=== PATIENT | female | born 1990 | race Caucasian/White ===

== ENCOUNTER → 2020-03-18 09:54 | Outpatient (CLI) | payer OTHER, MEDICAID, SELFPAY | PROVIDERS: Family Provider Pediatrics; PCP Obstetrics & Gynecology; Referring Provider Obstetrics & Gynecology; Visit Provider Obstetrics & Gynecology | DX: O21.1 Hyperemesis gravidarum with metabolic disturbance (principal); Z53.20 Procedure and treatment not carried out because of patient's decision for unspecified reasons; Z87.898 Personal history of other specified conditions ==

== ENCOUNTER → 2020-06-03 16:58 | Outpatient (CLI) | payer OTHER, MEDICAID, SELFPAY ==
[2020-06-03 17:29] LABS: Add Manual Diff / Slide Review NO; Basophils Absolute Auto 100 /uL (0-100); Basophils Percent Auto 0.9 % (0-2); Eosinophils Absolute Auto 100 /uL (0-450); Eosinophils Percent Auto 1.4 % (2-4); Hematocrit 37.2 % (36-46); Hemoglobin 12.9 g/dL (12.0-16.0); Lymphocytes Absolute Auto 1800 /uL (1100-4500); Lymphocytes Percent Auto 19.1 % (25-40); Mean Corpuscular HGB Conc 34.8 % (30-36); Mean Corpuscular Hemoglobin 32.1 PG (26-34); Mean Corpuscular Volume 92.3 fL (80-100); Monocytes Absolute Auto 400 /uL (0-900); Monocytes Percent Auto 4.3 % (3-14); Neutrophils Absolute Auto 7100 /uL (1500-7000); Neutrophils Percent Auto 74.3 % (50-75); Platelet Count 186 X10^3/uL (150-400); Red Blood Cell Count 4.03 X10^6/uL (4.0-5.2); Red Cell Distribution Width 12.5 % (11.6-14.8); White Blood Cell Count 9.5 X10^3/uL (4.5-11.0)
[2020-06-03 20:00] LABS: Hepatitis B Surface Antigen NEGATIVE s/c (NEGATIVE); Rubella Antibody IgG 20.9 IU/mL (>15)
[2020-06-03 20:10] LABS: HIV 1 & 2 Ab/Ag 4th Gen Combo NEGATIVE (NEGATIVE); Hep C Virus Ab w/Reflex Quant NEGATIVE s/c (NEGATIVE)
[2020-06-04 07:35] LABS: RPR Screen Non Reactive (Non Reactive)
[2020-06-04 08:09] LABS: Varicella IgG Antibody 1736 index (Immune >165)
== END ==
PROVIDERS: Family Provider Pediatrics; Referring Provider Obstetrics & Gynecology; Visit Provider Obstetrics & Gynecology
DX: Z34.81 Encounter for supervision of other normal pregnancy, first trimester (principal)
CPT/HCPCS: 36415; 80055; 86787; 86803; 86850; 86900; 86901; 87389

== ENCOUNTER → 2020-06-04 09:22 | Outpatient (CLI) | payer OTHER, MEDICAID, SELFPAY ==
--- NOTE | 2020-06-04 09:23 | DI.US.S_ITS ---
PROCEDURE: US OB >= 14 WEEKS FETUS INDICATIONS: ANATOMY OUTSIDE/PRIOR DATING DATA: Last menstrual period (LMP): 12/27/2019. LMP-based estimated date of delivery (KALI): 10/02/2020 . First dating scan (date and location): 03/12/2020at Dr. Schneider. Estimated date of delivery (KALI) from first dating scan: 10/14/2020. TECHNIQUE: Real-time scanning was performed of the fetus, with image documentation and biometric measurements. Endovaginal scanning: Not performed COMPARISON: [facility], , OB <= 14 WEEKS FETUS, 04/09/2020, 16:19. [facility], , OB <= 14 WEEKS FETUS, 03/12/2020, 16:03. [facility], OB >= 14 WEEKS FETUS, 05/07/2020, 16:54. FINDINGS: General: A single living intrauterine gestation is present. Presentation: Vertex. Placenta: Placental position is anterior , without previa. Amniotic fluid index: 14.4 cm, normal range is 5-24 cm; largest pocket 4.7 cm. heart rate: 155 beats per minute. Maternal cervical canal: 4.6 cm long. Normal lower limit is 2.5 cm. biometrics: Biparietal diameter: 22 weeks 3 days Head circumference: 21 weeks 3 days Abdominal circumference: 22 weeks 4 days Femur length: 22 weeks 0 day Estimated gestational age from initial scan: 21 weeks 1 day. Composite gestational age from present scan: 22 weeks 1 day Estimated weight and percentile: 489; 94% Measurement variability for biometric dating: +/- 7 days from 14 weeks to 15 weeks 6 days gestation, +/- 10 days from 16 weeks to 21 weeks 6 days gestation, +/- 2 weeks from 22 weeks to 27 weeks 6 days gestation, +/- 3 weeks for 28 weeks gestation or later. weight reference: 4500 g or EFW >90/95% is considered macrosomia or large for gestational age. EFW <10% is small for gestational age. EFW 5% or less is considered intra-uterine growth restriction. Anatomic survey: Neuro: Ventricles are non-dilated at less than 10 mm. Cisterna magna is normal at 3-11 mm. Cerebellum is normal in size and morphology. Nuchal skin fold: Normal at less than 6 mm between 14-21 weeks gestational age. Face: Nose and lips are normal. Facial profile not well seen. Spine: No evidence for spina bifida. Heart: 4-chambered heart is present, with normal ventricular outflow tracts. Diaphragm: Diaphragm is intact. Stomach: Left-sided stomach is present. Kidneys: No hydronephrosis. Normal is less than 5 mm in 2nd trimester, less than 7 mm in 3rd trimester. Cord: 3-vessel cord has orthotopic insertion. Bladder: Normal in size. Extremities: All 4 extremities identified. IMPRESSION: 1. A single living intrauterine gestation with appropriate interval growth. weight at the 94th percentile. 2. facial profile not well seen. Follow-up imaging suggested. 3. Otherwise normal anatomic survey. Dictated by: Lauri Javed M.D. on 06/04/2020 at 11:47 Approved by: Lauri Javed M.D. on 06/04/2020 at 13:19
== END ==
PROVIDERS: Family Provider Pediatrics; Referring Provider Obstetrics & Gynecology; Visit Provider Obstetrics & Gynecology
DX: Z34.82 Encounter for supervision of other normal pregnancy, second trimester (principal); Z3A.22 22 weeks gestation of pregnancy
CPT/HCPCS: 76811

== ENCOUNTER → 2020-07-25 15:29 | Outpatient (CLI) | payer OTHER, MEDICAID, SELFPAY | PROVIDERS: Family Provider Pediatrics; Referring Provider Obstetrics & Gynecology; Visit Provider Obstetrics & Gynecology | DX: Z34.01 Encounter for supervision of normal first pregnancy, first trimester (principal); Z3A.28 28 weeks gestation of pregnancy | CPT/HCPCS: 36415 ==

== ENCOUNTER → 2020-08-07 11:46 | Outpatient (CLI) | payer OTHER, MEDICAID, SELFPAY ==
[2020-08-07 12:26] LABS: Appearance Urine UA CLEAR; Bilirubin Urine UA NEGATIVE (NEGATIVE); Color Urine UA YELLOW; Glucose Urine UA NEGATIVE (Negative); Ketones Urine UA NEGATIVE (NEGATIVE); Leukocyte Esterase Urine UA NEGATIVE (NEGATIVE); Nitrite Urine UA NEGATIVE (Negative); Occult Blood Urine UA NEGATIVE (Negative); Protein Urine UA NEGATIVE (Negative); Specific Gravity Urine UA <=1.005 (1.000-1.035); Urobilinogen Urine UA 0.2 E.U./dL (0.2)
[2020-08-07 12:27] LABS: pH Urine UA 6.5 (4.5-8.0)
[2020-08-07 14:05] LABS: Hematocrit 37.6 % (36-46); Hemoglobin 12.6 g/dL (12.0-16.0)
[2020-08-07 14:20] LABS: GTT (PREG) 1 Hour PP 50gm Dose 122 mg/dL (76-139)
== END ==
PROVIDERS: Family Provider Pediatrics; Referring Provider Obstetrics & Gynecology; Visit Provider Obstetrics & Gynecology
DX: Z34.82 Encounter for supervision of other normal pregnancy, second trimester (principal)
CPT/HCPCS: 36415; 81003; 82950; 85014; 85018; 87086

== ENCOUNTER → 2020-08-15 19:05 | Outpatient (ROUT) | payer OTHER, MEDICAID, SELFPAY ==
[2020-08-18 00:41] LABS: Chlamydia trachomatis NAA Negative (Negative); Neisseria gonorrhoeae NAA Negative (Negative)
== END ==
PROVIDERS: Family Provider Pediatrics; Visit Provider Obstetrics & Gynecology
DX: Z34.82 Encounter for supervision of other normal pregnancy, second trimester (principal)
CPT/HCPCS: 87491; 87591

== ENCOUNTER → 2020-09-12 15:45 | Outpatient (CLI) | payer OTHER, MEDICAID, SELFPAY ==
[2020-09-12 20:50] LABS: Urine N gonorrhoeae NOT DETECTED
[2020-09-12 21:08] LABS: Urine Chlamydia NOT DETECTED
[2020-09-13 12:58] LABS: Strep Grp B PCR NEG for Grp B Strep
== END ==
PROVIDERS: Family Provider Pediatrics; Visit Provider Obstetrics & Gynecology
DX: Z34.83 Encounter for supervision of other normal pregnancy, third trimester (principal); Z3A.35 35 weeks gestation of pregnancy
CPT/HCPCS: 87491; 87591; 87653

== ENCOUNTER 2020-10-08 10:40 | Outpatient (CLI) | payer OTHER, MEDICAID, SELFPAY | END 2020-10-08 11:34 | disposition home or self-care (01) | LOC: LABOR 11:47 → OB 10-10 10:36 | PROVIDERS: Family Provider Pediatrics; Referring Provider Obstetrics & Gynecology; Visit Provider Obstetrics & Gynecology | DX: Z34.03 Encounter for supervision of normal first pregnancy, third trimester (principal); Z3A.39 39 weeks gestation of pregnancy | CPT/HCPCS: 59025; G0378; G0379 ==

== ENCOUNTER → 2020-10-15 09:25 | Outpatient (CLI) | payer OTHER, MEDICAID, SELFPAY ==
[2020-10-15 09:56] LABS: COVID19 -Nasal RAPID Negative (Negative)
== END ==
PROVIDERS: Family Provider Pediatrics; Referring Provider Obstetrics & Gynecology; Visit Provider Obstetrics & Gynecology
DX: Z01.812 Encounter for preprocedural laboratory examination (principal); Z20.822 Contact with and (suspected) exposure to COVID-19
CPT/HCPCS: 87635

== ENCOUNTER 2020-10-15 09:31 | Outpatient (CLI) | payer OTHER, MEDICAID, SELFPAY ==
--- NOTE | 2020-10-15 09:58 | PM.OBTRLD ---
Visit Information Visit Information Date of evaluation: 10/15/20 Primary OB Provider: Lindsay Schneider Reason for Evaluation: Yes non-stress test non-stress test reason: other (postdates) [facility] Medical History (Updated 08/18/20 @ 13:14 by Lindsay Schneider MD) Constipation (~2014) Irregular menses MRSA (methicillin resistant Staphylococcus aureus) (~2010) Ovarian cyst PCOS (polycystic ovarian syndrome) (~2017) Wrist fracture Yeast infection of the vagina Surgical History (Updated 02/21/20 @ 09:22 by Ariane Morocho RN) [place] teeth extracted (~2010) Family History (Updated 04/08/20 @ 21:47 by Evelyne Barrera) Mother Diabetes mellitus Father Cancer Congestive heart failure Hypertension Grandmother Stroke Smoker Grandfather Cancer Grandmother Smoker Emphysema lung COPD (chronic obstructive pulmonary disease) Grandfather Cancer Sister Asthma Social History (Updated 02/21/20 @ 10:25 by Ariane Morocho RN) marital status: unmarried,living together number of children: 0 household members: significant other and family lives independently: No (Just moved in with her parents. Lots of supportive family.) caregiver/support person: No housing: house pets and animals: Yes (1 Cat, 1 Dog. ) education level: college occupational status: previously employed current occupational exposures/hazards: No greg/presybeterian: Hoahaoism special greg needs: No Smoking Status: Former smoker Tobacco: How many years used: 4 second hand exposure: No alcohol intake: former substance use type: former substance user Type(s) of exercise: walking and regular exercise Evaluation Evaluation Baseline heart rate: 120 Variability: Moderate (11-25) monitor accelerations: Present Monitor Decelerations: Absent Uterine Contraction Intensity: Mild Category of Tracing: Reactive Cervical dilation (cm): 0 Cervical effacement (%): 85 station: -1 Diagnosis, Plan/Disposition Plan/Disposition Plan: Assessment: 40+1 weeks gestation Reactive NST Plan: F/U 1 day for Cervidil cervical ripening Pitocin induction 10/17 OB Disposition: home
== END 2020-10-15 10:07 | disposition home or self-care (01) ==
LOC: LABOR 09:47 → OB 10-16 07:17
PROVIDERS: Family Provider Pediatrics; Referring Provider Obstetrics & Gynecology; Visit Provider Obstetrics & Gynecology
DX: O48.0 Post-term pregnancy (principal); Z20.822 Contact with and (suspected) exposure to COVID-19; Z01.812 Encounter for preprocedural laboratory examination
CPT/HCPCS: 59025; 87635; G0378; G0379

== ENCOUNTER 2020-10-18 08:07 | Inpatient (IN) | payer OTHER, MEDICAID, SELFPAY ==
[2020-10-18] MEDS: LACTATED RINGERS 1,000 ML 100 ML IV ×2 (08:45→20:45)
[2020-10-18 09:04] LABS: Add Manual Diff / Slide Review NO; Basophils Absolute Auto 100 /uL (0-100); Basophils Percent Auto 0.7 % (0-2); Eosinophils Absolute Auto 0 /uL (0-450); Eosinophils Percent Auto 0.5 % (2-4); Hematocrit 38.6 % (36-46); Hemoglobin 13.3 g/dL (12.0-16.0); Lymphocytes Absolute Auto 1800 /uL (1100-4500); Mean Corpuscular HGB Conc 34.4 % (30-36); Mean Corpuscular Hemoglobin 32.7 PG (26-34); Mean Corpuscular Volume 95.2 fL (80-100); Monocytes Absolute Auto 600 /uL (0-900); Monocytes Percent Auto 6.8 % (3-14); Neutrophils Absolute Auto 6000 /uL (1500-7000); Platelet Count 171 X10^3/uL (150-400); Red Blood Cell Count 4.06 X10^6/uL (4.0-5.2); Red Cell Distribution Width 12.7 % (11.6-14.8); White Blood Cell Count 8.4 X10^3/uL (4.5-11.0)
[2020-10-18 09:20] VITALS: BP 130/81
[2020-10-18 09:28] LABS: COVID19 - ADMIT (NP swab/PCR) Negative (Negative)
[2020-10-18] MEDS: miSOPROStoL 25 MCG TABLET VAG (10:25)
--- NOTE | 2020-10-18 10:40 | PM.OBHP.1 ---
OB HPI Date/Time Date of admission: 10/18/20 Date Patient Seen: 10/18/20 Time Patient Seen: 10:41 History of Present Condition Chief complaint: INDUCTION OF LABOR : 2 Para: 0 Estimated Date of Delivery: 10/14/20 Estimated Gestational Age (weeks): 40+ 4 Narrative: Ana Mckinney is a 30 year old female 2 para 0 at 40 and 4 7th weeks gestation for cervical ripening/induction of labor due to postdates. Indications Indication for induction OB: post dates History of Present care: good care, initiated at week # (9), number of visits (14) and pounds weight gain (34) Dating criteria: LMP confirmed by 1st trimester US Ultrasounds: normal 1st trimester US and normal mid trimester US Obstetrical complications: none Medical complications: psychiatric (Suboxone) Preadmission Labs Blood type: O (+) positive -: Antibody screen: negative, GBS status: negative, HBsAG: negative, HIV: negative and RPR/VDLR: negative -: Chlamydia screen: not detected and Gonorrhea screen: not detected -: Rubella: immune and Varicella: immune HCT: 38.6 HCAB: negative PAP: Normal Urine: Negative 1 hr GTT: 122 Evaluation Evaluation Baseline heart rate: 125 Variability: Moderate (11-25) monitor accelerations: Present Monitor Decelerations: Absent Contraction Frequency (minutes): 4 Uterine Contraction Intensity: Mild Status: Category l Cervical dilation (cm): 0 Cervical effacement (%): 75 station: -1 Laboratory results: Laboratory Tests 10/18/20 10/18/20 10/18/20 08:20 08:30 08:30 WBC 8.4 RBC 4.06 Hgb 13.3 Hct 38.6 MCV 95.2 MCH 32.7 MCHC 34.4 RDW 12.7 Plt Count 171 Neut % (Auto) 71.0 Lymph % (Auto) 21.0 L [place] % (Auto) 6.8 Eos % (Auto) 0.5 L Baso % (Auto) 0.7 Neut # (Auto) 6000 Lymph # (Auto) 1800 [place] # (Auto) 600 Eos # (Auto) 0 Baso # (Auto) 100 SARS-CoV-2 (PCR) Negative Blood Type O Positive Antibody Screen Negative [facility] Medical History (Updated 08/18/20 @ 13:14 by Lindsay Schneider MD) Constipation (~2014) Irregular menses MRSA (methicillin resistant Staphylococcus aureus) (~2010) Ovarian cyst PCOS (polycystic ovarian syndrome) (~2017) Wrist fracture Yeast infection of the vagina Surgical History (Updated 02/21/20 @ 09:22 by Ariane Morocho RN) [place] teeth extracted (~2010) Family History (Updated 04/08/20 @ 21:47 by Evelyne Bruce) Mother Diabetes mellitus Father Cancer Congestive heart failure Hypertension Grandmother Stroke Smoker Grandfather Cancer Grandmother Smoker Emphysema lung COPD (chronic obstructive pulmonary disease) Grandfather Cancer Sister Asthma Social History (Updated 02/21/20 @ 10:25 by Ariane Morocho RN) marital status: unmarried,living together number of children: 0 household members: significant other and family lives independently: No (Just moved in with her parents. Lots of supportive family.) caregiver/support person: No housing: house pets and animals: Yes (1 Cat, 1 Dog. ) education level: college occupational status: previously employed current occupational exposures/hazards: No greg/tenriism: [employer] special greg needs: No Smoking Status: Former smoker Tobacco: How many years used: 4 second hand exposure: No alcohol intake: former substance use type: former substance user Type(s) of exercise: walking and regular exercise Meds Home Medications and Allergies Home Medications Medication Instructions Recorded Confirmed Type prenat.vits,larissa,pbw-[id number] 1 tab PO DAILY 02/21/20 10/15/20 History vits no.126-ferrous fum 1 tab PO DAILY #90 tab 04/09/20 10/18/20 Rx 28 mg iron-folic acid 800 mcg tablet ondansetron HCl 4 mg tablet 4 mg PO Q6H #20 tab 07/15/20 10/18/20 Rx Allergies Allergy/AdvReac Type Severity Reaction Status Date / Time INGREDIENT: NO KNOWN - NO Allergy Unknown Uncoded 10/15/20 09:10 KNOWN DRUG ALLERGY Exam Vital Signs (past 8 hours): - 10/18/20 09:20 Blood Pressure 130/81 Narrative Exam Narrative: Generally: No acute distress Lungs: Clear to auscultation bilaterally Cardiovascular: Regular rate and rhythm Fundal height: 40 cm Estimated weight 7 1/2 to 8 lb Extremities: Trace edema, 1+ DTRs Objective Labs Result Diagrams: 10/18/20 08:30 Labs: Laboratory Results - last 24 hr 10/18/20 10/18/20 10/18/20 08:20 08:30 08:30 WBC 8.4 RBC 4.06 Hgb 13.3 Hct 38.6 MCV 95.2 MCH 32.7 MCHC 34.4 RDW 12.7 Plt Count 171 Neut % (Auto) 71.0 Lymph % (Auto) 21.0 L [place] % (Auto) 6.8 Eos % (Auto) 0.5 L Baso % (Auto) 0.7 Neut # (Auto) 6000 Lymph # (Auto) 1800 [place] # (Auto) 600 Eos # (Auto) 0 Baso # (Auto) 100 SARS-CoV-2 (PCR) Negative Blood Type O Positive Antibody Screen Negative Assessment and Plan Assessment and Plan Assessment and Plan narrative: Assessment: 30-year-old 2 para 0 at 40-,4/7 weeks gestation for cervical ripening and induction of labor Suboxone use 4 mg per day Plan: Cytotec 25 micro g intravaginal every 4 hours until cervix favorable Then Pitocin induction of labor Epidural as necessary Pediatrics notified Time Spent with Patient Total time spent with greater than 50% in coordination of care (as documented) at patient's floor/unit and/or counseling patient:: 15-24 minutes
--- NOTE | 2020-10-18 10:49 | P.DS_ITS ---
Discharge Providers Provider Date of admission: 10/18/20 08:07 Discharge Date: 10/18/20 Discharge provider: Lindsay Schneider MD Summary Hospital Course Date Patient Seen: 10/18/20 Time Patient Seen: 10:50 Time Spent with Patient Time attestation: Total time spent providing and/or coordinating discharge services: Objective Labs Result Diagrams: 10/18/20 08:30 Labs: Laboratory Results - last 24 hr 10/18/20 10/18/20 10/18/20 08:20 08:30 08:30 WBC 8.4 RBC 4.06 Hgb 13.3 Hct 38.6 MCV 95.2 MCH 32.7 MCHC 34.4 RDW 12.7 Plt Count 171 Neut % (Auto) 71.0 Lymph % (Auto) 21.0 L [place] % (Auto) 6.8 Eos % (Auto) 0.5 L Baso % (Auto) 0.7 Neut # (Auto) 6000 Lymph # (Auto) 1800 [place] # (Auto) 600 Eos # (Auto) 0 Baso # (Auto) 100 SARS-CoV-2 (PCR) Negative Blood Type O Positive Antibody Screen Negative Exam Vital Signs (past 8 hours): - 10/18/20 09:20 Blood Pressure 130/81 Discharge Plan Discharge orders & Medications Prescriptions: No Action prenat.vits,larissa,[id number] Tablet 1 tab PO DAILY RF: 0 ondansetron HCl [Zofran] 4 mg tablet 4 mg PO Q6H Qty: 20 RF: 3 Classic 28 mg iron- 800 mcg tablet 1 tab PO DAILY Qty: 90 RF: 3 Discharge Data Attending Provider: Lindsay Schneider
--- NOTE | 2020-10-18 16:47 | PM.OBPNLAB ---
Date/Time Date Patient Seen: 10/18/20 Time Patient Seen: 16:48 Pain Control Pain control: tolerating well Pelvic Exam Dilation (cm): 2 Effacement (%): 80 station: -1 Contractions Monitor mode: External Contraction frequency (min): 3 Contraction duration (min): 1 Contraction pattern: Regular Contraction intensity: Mild Status status: Category l Heart Rate Baseline: 140 Monitor Accelerations: Present Monitor Decelerations: Absent Monitor Variability: Moderate Assessment and Plan Assessment: induction ongoing Comments: Anguiano bulb placed with 60 cc of normal saline in the cervix Low-dose Pitocin if contractions space out
[2020-10-18] MEDS: OXYTOCIN PREMIX 30 UNIT/500 ML PLAST..BAG IV (17:30)
[2020-10-18] MEDS: ONDANSETRON 4 MG/2 ML INJ IV (19:55)
[2020-10-19] MEDS: LACTATED RINGERS 1,000 ML 100 ML IV ×2 (01:30→08:49)
[2020-10-19] MEDS: FENT 2MCG/ML BUPIV 0.125% EPI 200 MCG/100 ML PLAST..BAG 8 MCG EPIDURAL (03:37)
--- NOTE | 2020-10-19 08:39 | PM.OBPNLAB ---
Date/Time Date Patient Seen: 10/19/20 Time Patient Seen: 08:00 Pain Control Pain control: epidural Pelvic Exam Dilation (cm): 8 Effacement (%): 90 station: 0 Amniotic membrane status: Ruptured Contractions Contractions on admission: regular Monitor mode: External Contraction frequency (min): 3 Contraction duration (min): 1 Contraction pattern: Regular Contraction intensity: Mild Status status: Category l Heart Rate Baseline: 135 Monitor Accelerations: Present Monitor Decelerations: Early Monitor Variability: Moderate Assessment and Plan Assessment: active labor Plan: continuous present management
--- NOTE | 2020-10-19 09:08 | PM.OBPNLAB ---
Date/Time Date Patient Seen: 10/19/20 Time Patient Seen: 09:08 Pain Control Pain control: tolerating well and epidural Pelvic Exam Dilation (cm): 6 Effacement (%): 90 station: -1 Amniotic membrane status: Ruptured Comments: Swollen at 12 o'clock Contractions Monitor mode: External Contraction frequency (min): 4 Contraction pattern: Regular Contraction intensity: Mild Status status: Category l Heart Rate Baseline: 135 Monitor Accelerations: Present Monitor Decelerations: Early Monitor Variability: Moderate Assessment and Plan Assessment: induction ongoing Comments: Restart Pitocin Peanut ball Side to side
[2020-10-19] MEDS: FENT 2MCG/ML BUPIV 0.125% EPI 200 MCG/100 ML PLAST..BAG 10 MCG EPIDURAL (11:07)
--- NOTE | 2020-10-19 13:40 | PM.OBPNLAB ---
Date/Time Date Patient Seen: 10/19/20 Time Patient Seen: 13:40 Pain Control Pain control: tolerating well and epidural Pelvic Exam Dilation (cm): 10 Effacement (%): 100 station: +2 Amniotic membrane status: Ruptured Contractions Monitor mode: External Pitocin rate (mU/min): 3 Contraction frequency (min): 2 Contraction duration (min): 1 Contraction pattern: Regular Contraction intensity: Mild Status status: Category l Heart Rate Baseline: 145 Monitor Accelerations: Present Monitor Decelerations: Variable Monitor Variability: Moderate Assessment and Plan Comments: Begin pushing Expectant management to
--- NOTE | 2020-10-19 15:05 | PM.OBPRVD ---
Events: Labor Induction Labor & Delivery Delivery date: 10/19/20 Intrapartal Events: Deceleration (Deep variable with rebounding tachycardia) Cervical ripening method: per Anguiano bulb protocol Induction method: per pitocin protocol (with Anguiano ) Delivery monitor: external FHT and external uterine Route of delivery: vacuum extraction Indication for instrumentation: nonreassuring FHR tracing (deep variable decelerations with rebounding tachycardia) Episiotomy description: None L&D Laceration Description: Perineal - 2nd Degree and Vaginal - 2nd Degree Delivery repair: vicryl and chromic Estimated blood loss (mL): 100 Anesthesia Type: Epidural Complications: None [place] Baby 1: Infant gender: Male Presentation: vertex Position: Right Occiput Anterior Placenta delivery description: Spontaneous Cord Vessel Description: 3 Vessels and Nuchal Cord (x2) score (1 min): 2 score (5 min): 7 score (10 min): 8 Narrative: Patient complete and pushed for 49 minutes. At 2:21 p.m., a live male delivered in the ALIREZA presentation over an intact perineum. There was a tight nuchal cord x2 which was cut on the perineum. The remainder of the body delivered without difficulty and was placed on mom's abdomen. The infant was limp and pale and not having respiratory effort so was taken to the warmer immediately. Cord bloods were obtained. Pitocin was given in the IV fluids. The placenta delivered intact with a three-vessel cord at 2:27 p.m.. Fundus was massaged to firm. Second-degree vaginal/perineal laceration was repaired with 2 0 Vicryl and 2-0 chromic in the usual fashion. Hemostasis was achieved. EBL 100 cc. Apgars 2 at 1 minute, 7 at 5 minutes, 8 at 10 minutes. Epidural for pain management. . Mom stable to recovery. Pediatrics called for . Plan for aftercare: Routine care
[2020-10-19] MEDS: LANOLIN OINT 7 GM 1 APPLIC TOP (20:14)
[2020-10-19] MEDS: IBUPROFEN 600 MG TABLET PO (20:15)
[2020-10-19] MEDS: DERMOPLAST SPRAY 20% 60 ML 1 SPRAY TOP (20:15)
[2020-10-19] MEDS: ACETAMINOPHEN 325 MG TABLET 650 MG PO (20:16)
[2020-10-20 07:43] LABS: Hematocrit 34.6 % (36-46); Hemoglobin 11.6 g/dL (12.0-16.0)
[2020-10-20] MEDS: IBUPROFEN 600 MG TABLET PO ×2 (08:00→13:52)
--- NOTE | 2020-10-20 10:39 | P.DS_ITS ---
Discharge Providers Provider Date of admission: 10/18/20 08:07 Discharge Date: 10/20/20 Consults: 10/20/20 14:58 Consult to Forensic Computer Examiner Routine Comment: Discharge provider: Lindsay Schneider MD Summary Hospital Course Date Patient Seen: 10/20/20 Time Patient Seen: 10:40 Diagnoses: 40-4/7 weeks gestation Suboxone therapy Cervical ripening Induction of labor Spontaneous rupture of membranes Vacuum assisted vaginal delivery Epidural analgesia Hospital Course: Patient is a 30-year-old 2 para 1 who presented for cervical ripening at 40-,4/7 weeks gestation on September 18, 2020. She progressed slowly into active labor. She had a Anguiano bulb and low-dose Pitocin. She had spontaneous rupture of membranes. She received an epidural for pain management. She had a vacuum assisted vaginal delivery due to deep variable decelerations with rebounding tachycardia. She had a second-degree vaginal/perineal laceration that was repaired. Her course was unremarkable. Peripartum Data Infant Delivery Method: Assisted Delivery (Vacuum) Laceration Description: Perineal - 2nd Degree and Vaginal - 2nd Degree Episiotomy description: None Procedures: Anguiano bulb and low-dose Pitocin cervical ripening Epidural analgesia Vacuum assisted vaginal delivery Second-degree laceration and repair complications: none [place] 1: Gender: Male Disposition of : other (Still inpatient watching for TAL) Status at Discharge Cognitive/behavioral status at discharge: oriented Functional status at discharge: independent ambulation Overall status at discharge: patient is progressing back to baseline Time Spent with Patient Time attestation: Total time spent providing and/or coordinating discharge services: Time spent: Less than 30 minutes Objective Labs Result Diagrams: 10/20/20 07:20 Labs: Laboratory Results - last 24 hr 10/20/20 07:20 Hgb 11.6 L Hct 34.6 L Exam Vital Signs (past 8 hours): Generally: Patient is sitting up in bed, no acute distress Fundus: Firm at U -1 Extremities: Negative Homans, trace edema Discharge Plan Discharge Plan Patient Disposition: Home Provider Discharge Comment: Call with fever, chills, or bleeding vaginally more than a pad in an hour Ibuprofen 600 mg every 6 hours as needed for cramping Tylenol 650 mg every 6 hours as needed Continue Suboxone 2 mg p.o. q.day Discharge orders & Medications Prescriptions: Continued prenat.vits,larissa,[id number] Tablet 1 tab PO DAILY RF: 0 Classic 28 mg iron- 800 mcg tablet 1 tab PO DAILY Qty: 90 RF: 3 Discontinued ondansetron HCl [Zofran] 4 mg tablet 4 mg PO Q6H Qty: 20 RF: 3 Follow up/Referrals: Lindsay Schneider MD [Physician] - 6 Weeks (My office will call to schedule on 10/21/20) Diet/Activity/Treatments Diet: Regular Activity: Nothing in the vagina Skin/Wound/Dressing Care Report to your healthcare provider any signs of infection, such as:: chills, fever, increased pain and unusual drainage Visit Report/Discharge Packet Instructions: DI for Labor and Delivery, Vaginal
[2020-10-20 13:52] VITALS: TEMP 37.1
== END 2020-10-20 14:00 | disposition home or self-care (01) | DRG 560 ==
PROVIDERS: Admitting Provider Obstetrics & Gynecology; Family Provider Pediatrics; Referring Provider Obstetrics & Gynecology; Visit Provider Obstetrics & Gynecology
DX: O48.0 Post-term pregnancy (principal); Z3A.40 40 weeks gestation of pregnancy; Z37.0 Single live birth; O76 Abnormality in fetal heart rate and rhythm complicating labor and delivery; O70.1 Second degree perineal laceration during delivery; O69.81X0 Labor and delivery complicated by cord around neck, without compression, not applicable or unspecified; O99.324 Drug use complicating childbirth; Z79.891 Long term (current) use of opiate analgesic; Z20.822 Contact with and (suspected) exposure to COVID-19
CPT/HCPCS: 01967; 36415; 59050; 59409; 85014; 85018; 85025; 86850; 86900; 86901; 87635; C9803; G0379; J2405; J2590